=== PATIENT | male | born 1940 | race Caucasian/White ===

== ENCOUNTER 2020-12-17 13:36 | Emergency (ER) | payer OTHER ==
[2020-12-17 14:10] VITALS: BMI 23.3
[2020-12-17 15:14] LABS: BASO % 0.1 % (0-2.0); EOS % 0.2 % (0-4.5); HEMATOCRIT 38.5 % (35.4-49); HEMOGLOBIN 12.8 GM/dL (11.7-16.9); MCH 29.9 pg (25.7-33.7); MCHC 33.2 g/dl (32.0-35.9); MEAN CELL VOLUME 89.9 fl (80-96); MEAN PLT VOLUME 9.9 fl (7.5-11.1); MONO % 5.8 % (3.8-10.2); NEUT % 90.9 % (42.8-82.8); PLATELET COUNT 303 K/MM3 (134-434); RBC 4.28 M/mm3 (4.00-5.60); WHITE BLOOD COUNT 11.8 K/mm3 (4.0-10.0)
[2020-12-17 15:40] LABS: POTASSIUM 4.2 mmol/L (3.5-5.1)
[2020-12-17 15:41] VITALS: BP 126/80; PULSE 81; TEMP 98.8
[2020-12-17 15:42] LABS: ALBUMIN 2.7 g/dl (3.4-5.0); CALCIUM 8.3 mg/dL (8.5-10.1)
[2020-12-17 15:46] LABS: CREATININE 1.8 mg/dL (0.55-1.3)
[2020-12-17 15:47] LABS: BILIRUBIN,TOTAL 0.4 mg/dL (0.2-1)
== END 2020-12-17 15:40 | disposition home or self-care (01) ==
LOC: JER 13:36
DX: J12.82 Pneumonia due to coronavirus disease 2019 (principal); U07.1 COVID-19
CPT/HCPCS: 36415; 71046-TC-FY; 80053; 85025; 99284-25; C9803; U0003

== ENCOUNTER 2020-12-19 10:59 | Emergency (ER) | payer OTHER ==
[2020-12-19 11:06] VITALS: BP 119/82; PULSE 80; TEMP 98.1; BMI 22.6
[2020-12-19] MEDS ORDERED: BAMLANIVIMAB 700 MG in SODIUM CHLORIDE 250 ML IVPB ONE (11:15)
[2020-12-19 12:40] LABS: BASO % 0.2 % (0-2.0); EOS % 0.2 % (0-4.5); HEMATOCRIT 38.4 % (35.4-49); HEMOGLOBIN 12.7 GM/dL (11.7-16.9); MCH 29.9 pg (25.7-33.7); MCHC 33.1 g/dl (32.0-35.9); MEAN CELL VOLUME 90.4 fl (80-96); MEAN PLT VOLUME 9.9 fl (7.5-11.1); NEUT % 86.6 % (42.8-82.8); PLATELET COUNT 397 K/MM3 (134-434); RBC 4.25 M/mm3 (4.00-5.60); RDW 14.9 % (11.9-15.9); WHITE BLOOD COUNT 11.7 K/mm3 (4.0-10.0)
[2020-12-19 12:59] LABS: POTASSIUM 4.5 mmol/L (3.5-5.1)
[2020-12-19 13:01] LABS: ALBUMIN 2.6 g/dl (3.4-5.0); BLOOD UREA NITROGEN 35.7 mg/dL (7-18)
[2020-12-19 13:02] LABS: CALCIUM 8.8 mg/dL (8.5-10.1)
[2020-12-19 13:04] LABS: CREATININE 2.1 mg/dL (0.55-1.3)
[2020-12-19 13:06] LABS: BILIRUBIN,TOTAL 0.6 mg/dL (0.2-1); TOT PROT 7.3 g/dl (6.4-8.2)
== END 2020-12-19 15:00 | disposition home or self-care (01) ==
LOC: JCOVINFU 10:59 → JER 10:59 → JCOVINFU 15:00
DX: U07.1 COVID-19 (principal)
CPT/HCPCS: 36415; 71046-TC-FY; 80053; 85025; 99284-25